=== PATIENT | female | born 1975 | race Caucasian/White ===

== ENCOUNTER → 2017-11-29 | Day surgery (SDC) | payer OTHER | END | disposition home or self-care (01) | LOC: ADM 11-22 10:30 → CIR.AMB 11-22 10:30 → AMB-ENDOS 06:00 → CIR.AMB 10:30 | DX: D12.5 Benign neoplasm of sigmoid colon (principal); K57.30 Diverticulosis of large intestine without perforation or abscess without bleeding; K64.8 Other hemorrhoids ==